=== PATIENT | male | born 1960 | race Caucasian/White ===

== ENCOUNTER → 2020-11-16 | Day surgery (SDC) | payer OTHER ==
[~2020-11-16] VITALS: Ht 170.2 cm; Wt 99.8 kg
[~2020-11-16] MED LIST: ALLEGRA ALLERG180 MG PO; FLONASE ALLER15.8 ML; MOBIC7.5 MG PO; NORVASC5 MG PO; VENTOLIN HFA IN18 GM INH
[2020-11-16 08:24] LABS: HCT 45.7 % (42.0-52.0); HGB 15.5 g/dl (13.2-18.0); MCH 31.8 pg (25.0-31.0); MCHC 33.9 g/dL (32.0-36.0); MCV 93.6 fL (78.0-100.0); RBC 4.88 M/uL (4.70-6.00); RDW 11.6 % (11.5-14.0); WBC 6.5 K/uL (4.0-10.5)
[2020-11-16 09:07] LABS: CREATININE 0.67 mg/dL (0.67-1.17); POTASSIUM 4.8 mmol/L (3.5-5.1)
[2020-11-16 09:08] LABS: ALBUMIN 3.8 g/dL (3.4-5.0); BILIRUBIN - TOTAL 0.4 mg/dL (0.2-1.0); TOTAL PROTEIN 6.8 g/dL (6.4-8.2)
== END | disposition home or self-care (01) ==
LOC: FAS 07:17
PROVIDERS: Surgery
DX: Z12.11 Encounter for screening for malignant neoplasm of colon (principal); K44.9 Diaphragmatic hernia without obstruction or gangrene; E11.9 Type 2 diabetes mellitus without complications; I10 Essential (primary) hypertension; I45.10 Unspecified right bundle-branch block; J44.9 Chronic obstructive pulmonary disease, unspecified; J30.9 Allergic rhinitis, unspecified; Z88.0 Allergy status to penicillin; Z87.891 Personal history of nicotine dependence
CPT/HCPCS: G0121; 36415; 80053; 93005; J2250; J2704; J7120